=== PATIENT | female | born 2000 | race Two or more races ===

== ENCOUNTER 2023-09-21 05:38 | Emergency (ER) | payer OTHER ==
[~2023-09-21] VITALS: Ht 157.5 cm; Wt 75.9 kg
[2023-09-21 05:40] VITALS: BP 139/80; PULSE 80; RESP 16; TEMP 97.9
[2023-09-21] MEDS ORDERED: CYCL-448 PO (08:43)
[2023-09-21] MEDS: ACETAMINOPHEN 325 MG TABLET PO ONE (08:50)
== END 2023-09-21 08:55 | disposition home or self-care (01) ==
LOC: EMS 05:39
DX: S13.4XXA Sprain of ligaments of cervical spine, initial encounter (principal); F12.90 Cannabis use, unspecified, uncomplicated; V89.2XXA Person injured in unspecified motor-vehicle accident, traffic, initial encounter; Y93.89 Activity, other specified; Y92.89 Other specified places as the place of occurrence of the external cause; Y99.8 Other external cause status
CPT/HCPCS: 72125; 84703; 99284